=== PATIENT | male | born 1950 | race Two or more races ===

== ENCOUNTER 2016-11-30 07:39 | Day surgery (SDC) | payer MEDICARE, OTHER ==
[~2016-11-30] VITALS: Ht 170.2 cm; Wt 106.6 kg
[~2016-11-30 07:39] MED LIST: ASCO125T PO; CILO100T PO; COR6 PO; FEBU80TA PO; FURO40TA5 PO; GABA-531 PO; INSLAN SQ; INSU100I3 SQ; ISOS10TA2 PO; METO5TAB69 PO; OMEG500C PO; PRAV80TA21 PO; VALS160T23 PO
[2016-11-30 07:54] LABS: HEMATOCRIT 26.6 % (42.0-52.0); HEMOGLOBIN 8.7 g/dL (14.0-18.0); MEAN CORPUSCULAR HEMOGLOBIN 29.4 pg (28.0-32.0); MEAN CORPUSCULAR HGB CONC 32.6 g/dL (31.0-37.0); MEAN CORPUSCULAR VOLUME 90.2 fL (80.0-94.0); PLATELET 214 x1000/uL (130-400); RED BLOOD CELL COUNT 2.95 mill/uL (4.7-6.1); RED CELL DISTRIBUTION WIDTH 14.1 % (11.6-14.6)
[2016-11-30 08:00] LABS: INR 1.1; PARTIAL THROMBOPLASTIN TIME 29.6 sec (24.0-34.0); PROTHROMBIN TIME 11.6 sec
[2016-11-30 08:03] LABS: CALCIUM 8.6 mg/dL (8.5-10.1)
[2016-11-30] MEDS ORDERED: VALS160T2 PO (08:17)
[2016-11-30] MEDS ORDERED: LINA5TAB PO (08:17)
[2016-11-30] MEDS ORDERED: PIOG15TA13 PO (08:17)
[2016-11-30] MEDS ORDERED: eliquis PO (08:17)
[2016-11-30] MEDS ORDERED: LIDOCAINE HCL 1% 20ML VIAL (Pyxis) INJ ONE (08:58)
[2016-11-30] MEDS ORDERED: IODIXANOL 320MG/ML 200ML BOTTLE ONE (08:58)
[2016-11-30] MEDS ORDERED: FENTANYL CITRATE/PF 50MCG/ML 2ML VIAL ONE (09:01)
[2016-11-30] MEDS ORDERED: MIDAZOLAM HCL 2 MG/2 ML VIAL ONE (09:01)
[2016-11-30] MEDS ORDERED: SODIUM BICARBONATE 150 MEQ in DEXTROSE 5% WATER 1,000 ML IV ONE (09:09)
== END 2016-11-30 15:30 | disposition home or self-care (01) ==
LOC: CCL 07:39
PROVIDERS: ATTEND Internal Medicine Cardiovascular Disease
DX: I83.028 Varicose veins of left lower extremity with ulcer other part of lower leg (principal); I48.1 Persistent atrial fibrillation
CPT/HCPCS: 36247; 36415; 75710; 80048; 85027; 85610; 85730; C1760; C1769; C1893; J1644; J2250; J3010; J3490; J7070; Q9967